=== PATIENT | female | born 1985 | race Caucasian/White ===

== ENCOUNTER 2023-03-10 20:17 | Emergency (ER) | payer BC, OTHER ==
[~2023-03-10] VITALS: Ht 165.1 cm; Wt 65.8 kg
[2023-03-10 20:44] LABS: BASOPHILS # (AUTO) 0.1 10^3/uL (0.0-0.1); BASOPHILS % (AUTO) 1 % (0-10); EOSINOPHILS # (AUTO) 0.2 10^3/uL (0.0-0.3); EOSINOPHILS % (AUTO) 3 % (0-10); HEMATOCRIT 38 % (35-52); HEMOGLOBIN 13.1 g/dL (11.5-16.0); LYMPHOCYTES # (AUTO) 3.2 10^3/uL (1.0-4.0); LYMPHOCYTES % (AUTO) 44 % (12-44); MEAN CORPUSCULAR HEMOGLOBIN 33 pg (25-34); MEAN CORPUSCULAR HGB CONC 35 g/dL (32-36); MEAN CORPUSCULAR VOLUME 94 fL (80-99); MEAN PLATELET VOLUME 9.3 fL (9.0-12.2); MONOCYTES # (AUTO) 0.5 10^3/uL (0.0-1.0); MONOCYTES % (AUTO) 7 % (0-12); NEUTROPHILS # (AUTO) 3.4 10^3/uL (1.8-7.8); NEUTROPHILS % (AUTO) 46 % (42-75); PLATELET COUNT 287 10^3/uL (130-400); WHITE BLOOD COUNT 7.4 10^3/uL (4.3-11.0)
[2023-03-10] MEDS ORDERED: NS IV 1000 ML 1,000 ML IV SCH (20:45)
--- NOTE | 2023-03-10 20:53 | ED Psychosocial ---
General Chief Complaint: Eye Problems Stated Complaint: LOSS OF VISION, TIGHTNESS IN CHEST History of Present Illness Date Seen by Provider: Mar 10, 2023 Time Seen by Provider: 20:36 Initial Comments 37-year-old female arrives from work with complaints of vision changes, chest tightness, and anxiety. She has history of migraines. Approximately 1 hour ago she thought her migraine was starting and took a sumatriptan. She never developed a migraine but noted vision changes with partial loss of vision on ri de side of both eyes. No aura, reports floaters in the past with migraines but did not experience that tonight. Reports no major life changes, received good news yesterday but had stressful news about her son today Timing/Duration: just prior to arrival Associated Symptoms: anxiety, impaired concentration, insomnia (chronic), suicidal ideation Allergies and Home Medications Allergies Coded Allergies: No Known Drug Allergies (Unverified , 03/10/23) Patient Home Medication List Home Medication List Reviewed: Yes Review of Systems Constitutional: no symptoms reported, see HPI EENTM: see HPI, other (vision changes); No vision loss Respiratory: see HPI, other (chest tightness) Cardiovascular: no symptoms reported, see HPI Gastrointestinal: no symptoms reported, see HPI : No (Same Sex partner) Musculoskeletal: no symptoms reported, see HPI Psychiatric/Neurological: See HPI, Anxiety Physical Exam Vital Signs - First Documented 03/10/23 20:20 Temp 36.5 Pulse 73 Resp 22 B/P (MAP) 130/93 (105) Pulse Ox 99 Capillary Refill : Height, Weight, BMI Height: '" Weight: lbs. oz. kg; BMI Method: General Appearance: WD/WN, mild distress (due to anxiety and concern with costs of medical care, reassured her patient assistance paperwork would be provided. ) HEENT: PERRL/EOMI, normal ENT inspection, TMs normal, pharynx normal Neck: non-tender, full range of motion, supple, normal inspection Respiratory: chest non-tender, lungs clear, normal breath sounds, no respiratory distress Cardiovascular: normal peripheral pulses, regular rate, rhythm, no edema Gastrointestinal: normal bowel sounds, non tender, soft Neurologic/Psychiatric: rn hemodialysis charge II-XII nml as tested (grossly intact), no motor/sensory deficits, alert, normal mood/affect, oriented x 3 Behavior/Eye Contact: cooperative, good eye contact, normal speech Thoughts/Hallucinations: normal thought pattern, no apparent hallucination Skin: normal color, warm/dry Progress/Results/Core Measures Results/Orders Lab Results Laboratory Tests Test 03/10/23 20:34 03/10/23 20:36 03/10/23 20:48 Range/Units Glucometer 89 70-110 MG/DL White Blood Count 7.4 4.3-11.0 10^3/uL Red Blood Count 4.03 3.80-5.11 10^6/uL Hemoglobin 13.1 11.5-16.0 g/dL Hematocrit 38 35-52 % Mean Corpuscular Volume 94 80-99 fL Mean Corpuscular Hemoglobin 33 25-34 pg Mean Corpuscular Hemoglobin Concent 35 32-36 g/dL Red Cell Distribution Width 11.9 10.0-14.5 % Platelet Count 287 130-400 10^3/uL Mean Platelet Volume 9.3 9.0-12.2 fL Immature Granulocyte % (Auto) 0 % Neutrophils (%) (Auto) 46 42-75 % Lymphocytes (%) (Auto) 44 12-44 % Monocytes (%) (Auto) 7 0-12 % Eosinophils (%) (Auto) 3 0-10 % Basophils (%) (Auto) 1 0-10 % Neutrophils # (Auto) 3.4 1.8-7.8 10^3/uL Lymphocytes # (Auto) 3.2 1.0-4.0 10^3/uL Monocytes # (Auto) 0.5 0.0-1.0 10^3/uL Eosinophils # (Auto) 0.2 0.0-0.3 10^3/uL Basophils # (Auto) 0.1 0.0-0.1 10^3/uL Immature Granulocyte # (Auto) 0.0 0.0-0.1 10^3/uL Sodium Level 137 135-145 MMOL/L Potassium Level 4.1 3.6-5.0 MMOL/L Chloride Level 104 98-107 MMOL/L Carbon Dioxide Level 24 21-32 MMOL/L Anion Gap 9 5-14 MMOL/L Blood Urea Nitrogen 22 H 7-18 MG/DL Creatinine 1.04 0.60-1.30 MG/DL Estimat Glomerular Filtration Rate 70 BUN/Creatinine Ratio 21 Glucose Level 90 70-105 MG/DL Calcium Level 9.0 8.5-10.1 MG/DL Corrected Calcium 8.8 8.5-10.1 MG/DL Total Bilirubin 0.8 0.1-1.0 MG/DL Aspartate Amino Transf (AST/SGOT) 19 5-34 U/L Alanine Aminotransferase (ALT/SGPT) 16 0-55 U/L Alkaline Phosphatase 60 40-136 U/L Troponin I < 0.028 <0.028 NG/ML Total Protein 6.9 6.4-8.2 GM/DL Albumin 4.2 3.2-4.5 GM/DL Urine Color YELLOW Urine Clarity CLEAR Urine pH 7.0 5-9 Urine Specific [place] 1.020 1.016-1.022 Urine Protein NEGATIVE NEGATIVE Urine Glucose (UA) NEGATIVE NEGATIVE Urine Ketones NEGATIVE NEGATIVE Urine Nitrite NEGATIVE NEGATIVE Urine Bilirubin NEGATIVE NEGATIVE Urine Urobilinogen 0.2 < = 1.0 MG/DL Urine Leukocyte Esterase NEGATIVE NEGATIVE Urine RBC (Auto) NEGATIVE NEGATIVE Urine RBC NONE /HPF Urine WBC NONE /HPF Urine Squamous Epithelial Cells 10-25 H /HPF Urine Crystals PRESENT H /LPF Urine Amorphous Sediment MOD FARRUKH PHOSPHATE H /LPF Urine Bacteria FEW H /HPF Urine Casts NONE /LPF Urine Mucus NEGATIVE /LPF Urine Culture Indicated NO Urine Opiates Screen NEGATIVE NEGATIVE Urine Oxycodone Screen NEGATIVE NEGATIVE Urine Methadone Screen NEGATIVE NEGATIVE Urine Propoxyphene Screen NEGATIVE NEGATIVE Urine Barbiturates Screen NEGATIVE NEGATIVE Ur Tricyclic Antidepressants Screen NEGATIVE NEGATIVE Urine Phencyclidine Screen NEGATIVE NEGATIVE Urine Amphetamines Screen NEGATIVE NEGATIVE Urine Methamphetamines Screen NEGATIVE NEGATIVE Urine Benzodiazepines Screen POSITIVE H NEGATIVE Urine Cocaine Screen NEGATIVE NEGATIVE Urine Cannabinoids Screen NEGATIVE NEGATIVE My Orders Orders - CAMILLE HA Accucheck Stat ONCE (03/10/23 20:27) Urine Bedside (03/10/23 20:27) Ekg Tracing (03/10/23 20:27) Cbc With Automated Diff (03/10/23 20:27) Comprehensive Metabolic Panel (03/10/23 20:27) Drug Screen Stat (Urine) (03/10/23 20:27) Ua Culture If Indicated (03/10/23 20:27) Ed Iv/Invasive Line Start (03/10/23 20:42) Ns Iv 1000 Ml (Ns Iv 1000 Ml) (03/10/23 20:45) Troponin I Erika (03/10/23 20:42) Lorazepam Injection (Lorazepam Injection (03/10/23 20:42) Ct Head Wo (03/10/23 20:42) Lidocaine 2% Viscous 15 Ml (Xylocaine Vi (03/10/23 21:45) Antacid Suspension (Antacid Suspension (03/10/23 21:45) Lorazepam Injection (Lorazepam Injection (03/10/23 21:58) Ketorolac Injection (Ketorolac Injection (03/10/23 21:58) Medications Given in ED Current Medications Medications Dose Ordered Sig/Tonya Route Start Time Stop Time Status Last Admin Dose Admin Al Hydrox/Mg Hydrox/Simethicone 30 ml ONCE ONCE PO 03/10/23 21:45 03/10/23 21:46 DC 03/10/23 21:47 30 ML Lidocaine HCl 15 ml ONCE ONCE PO 03/10/23 21:45 03/10/23 21:46 DC 03/10/23 21:47 15 ML Vital Signs/I&O 03/10/23 20:20 Temp 36.5 Pulse 73 Resp 22 B/P (MAP) 130/93 (105) Pulse Ox 99 Progress Progress Note : Time: 20:36 Progress Note Patient assessed, will obtain EKG, lab work, normal saline 1 L, Ativan 0.[address] head. 2124 Patient complaining of heartburn, will give GI Cocktail. 2199 CT neg for acute findings. Reports heartburn better but anxiety worse with jaw pain. Will give Ativan 1 mg and Toradol 30 mg IV. Taking sips of water. Complains of feeling like she is wheezing, lungs CTA. 2229 symptoms have all improved. Patient's sons are here at bedside. Requesting d/c to home. Vision improved, PERRL, EOMI, full vision in all romero. Discharge instructions and return precautions reviewed with her. Initial ECG Impression Date: Mar 10, 2023 Initial ECG Impression Time: 20:25 Initial ECG Rate: 68 Initial ECG Rhythm: Normal Sinus Initial ECG Intervals: Normal Initial ECG Intervals WI 149, QRS D93, QT 389, QTc 406. Parkman P 40, R 67, T 37. Initial ECG Impression: Normal Initial ECG Comparisson: No Previous ECG Available Diagnostic Imaging Diagonstic Imaging: CT Plain Films/CT/US/NM/MRI: head Comments NAME: A[facility] REC#: [id number] PT STATUS: REG ER : 1985 PHYSICIAN: CAMILLE HA ADMIT DATE: 03/10/23/ER Signed Date of Exam:03/10/23 CT HEAD WO PROCEDURE: CT head without contrast. TECHNIQUE: Multiple contiguous axial images were obtained through the brain without the use of intravenous contrast. Auto Exposure Controls were utilized during the CT exam to meet ALARA standards for radiation dose reduction. INDICATION: Vision changes and migraine headaches. COMPARISON: None available. FINDINGS: CT of the head demonstrates no evidence of an acute intracranial abnormality. There is no evidence of intracranial hemorrhage. There is no extra-axial fluid collection, mass effect or shift. Cerda and white matter differentiation appear preserved. There is no abnormal hypodensity within the basal ganglia. The ventricles are appropriate in size and configuration. There is no evidence of hydrocephalus. The basilar cisterns are patent. The posterior fossa is unremarkable. Mastoids and visualized paranasal sinuses appear clear. Orbital contents are unremarkable. There is no calvarial abnormality. IMPRESSION: 1. No CT evidence of an acute intracranial abnormality. Dictated by: Dictated on workstation # [id number] Dict: 03/10/232143 Trans: 03/10/232144 [facility] [id number] Interpreted by: RANCHO NEWMAN MD Electronically signed by: RANCHO NEWMAN MD 03/10/232144 Departure Impression Primary Impression: Vision changes Additional Impressions: History of migraine Anxiety Disposition: 01 HOME, SELF-CARE Condition: Improved Departure-Patient Inst. Decision time for Depature: 22:10 Referrals: TARA TAVAREZ (PCP/Family) Primary Care Physician Patient Instructions: Anxiety, Adult (DC), Migraines (DC) Add. Discharge Instructions: Continue your home medications. Follow up with your Primary Care, if symptoms are not improving or worsen. Take Tylenol 650 mg alternating with Ibuprofen 600 mg every 4 hours for pain. You can return to work, tomorrow. Return to Emergency Dept for new, urgent healthcare problems. All discharge instructions reviewed with patient and/or family. Voiced understanding. Work/School Note: Work Release Form Date Seen in the Emergency Department: Mar 10, 2023 Return to Work: Mar 11, 2023 Restrictions: No Restrictions CAMILLE HA Mar 10, 2023 20:53
[2023-03-10 21:06] LABS: BILIRUBIN,URINE NEGATIVE (NEGATIVE); CLARITY,URINE CLEAR; COLOR,URINE YELLOW; GLUCOSE, URINE (UA) NEGATIVE (NEGATIVE); KETONES,URINE NEGATIVE (NEGATIVE); NITRITE,URINE NEGATIVE (NEGATIVE); PROTEIN,URINE NEGATIVE (NEGATIVE)
[2023-03-10 21:07] LABS: AMORPHOUS SEDIMENT,UR MOD AMOR PHOSPHATE /LPF; BACTERIA,URINE FEW /HPF; LEUKOCYTE ESTERASE ,URINE NEGATIVE (NEGATIVE)
[2023-03-10 21:10] LABS: AMPHETAMINE SCREEN, URINE NEGATIVE (NEGATIVE); BARBITURATE SCREEN URINE NEGATIVE (NEGATIVE); BENZODIAZEPINES SCREEN URINE POSITIVE (NEGATIVE); CANNABINOID SCREEN, URINE NEGATIVE (NEGATIVE); COCAINE SCREEN URINE NEGATIVE (NEGATIVE); METHADONE STAT NEGATIVE (NEGATIVE); OPIATE SCREEN URINE NEGATIVE (NEGATIVE); OXYCODONE STAT NEGATIVE (NEGATIVE); PROPOXYPHENE STAT NEGATIVE (NEGATIVE); TRICYCLIC ANTIDEPRESSANTS SCRE NEGATIVE (NEGATIVE)
[2023-03-10 21:11] LABS: ALBUMIN 4.2 GM/DL (3.2-4.5); BILIRUBIN,TOTAL 0.8 MG/DL (0.1-1.0); CREATININE SERUM 1.04 MG/DL (0.60-1.30); POTASSIUM 4.1 MMOL/L (3.6-5.0); TOTAL PROTEIN 6.9 GM/DL (6.4-8.2)
[2023-03-10] MEDS ORDERED: LIDOCAINE 2% VISCOUS 15 ML UDC PO ONE (21:45)
[2023-03-10] MEDS ORDERED: ANTACID SUSPENSION 30 ML UDC PO ONE (21:45)
--- NOTE | 2023-03-10 21:46 | Diagnostic Imaging Report ---
PROCEDURE: CT head without contrast. TECHNIQUE: Multiple contiguous axial images were obtained through the brain without the use of intravenous contrast. Auto Exposure Controls were utilized during the CT exam to meet ALARA standards for radiation dose reduction. INDICATION: Vision changes and migraine headaches. COMPARISON: None available. FINDINGS: CT of the head demonstrates no evidence of an acute intracranial abnormality. There is no evidence of intracranial hemorrhage. There is no extra-axial fluid collection, mass effect or shift. Cerda and white matter differentiation appear preserved. There is no abnormal hypodensity within the basal ganglia. The ventricles are appropriate in size and configuration. There is no evidence of hydrocephalus. The basilar cisterns are patent. The posterior fossa is unremarkable. Mastoids and visualized paranasal sinuses appear clear. Orbital contents are unremarkable. There is no calvarial abnormality. IMPRESSION: 1. No CT evidence of an acute intracranial abnormality. Dictated by: Dictated on workstation # [id number]
[2023-03-10] MEDS ORDERED: KETOROLAC INJ 30 MG/ML VIAL IVP STA (21:58)
[2023-03-10 22:50] VITALS: BP 119/82
== END 2023-03-10 22:51 | disposition home or self-care (01) ==
LOC: ER 20:21
DX: H53.9 Unspecified visual disturbance (principal); F41.9 Anxiety disorder, unspecified; Z86.69 Personal history of other diseases of the nervous system and sense organs
CPT/HCPCS: 36415; 70450; 80053; 80306; 81000; 82947; 84484; 84703; 85025; 93005